=== PATIENT | female | born 1990 | race American Indian/Alaskan Native ===

== ENCOUNTER 2017-02-12 20:45 | Emergency (ER) | payer OTHER ==
[2017-02-13] MEDS ORDERED: TYLENOL #3 PO ONE (00:15)
[2017-02-13] MEDS ORDERED: TRIMOX PO ONE (00:15)
--- NOTE | 2017-02-13 00:37 | Emergency Department Report ---
HPI - General Chief Complaint: Dental/Oral Time Seen by Provider: 02/12/17 23:58 - HPI HPI: The patient is a 27-year-old frmale who presents to ED complaining of 10/10 pain in the left side of his mouth x 7 days . Patient states that the pain started 7 days ago and has increased in severity over the last 2-3 days. The pain is exacerbated by eating and opening of the mouth. Patient states that it radiates towards ear. Patient describes a as a throbbing, pressure-like sensation. Patient states otherwise well and has no other complaints. Patient has had no fevers and no chills. No chest pain, no shortness of breath. No abdominal pain. No shortness of breath or recent trauma to the face. ED Past Medical Hx - Past Medical History Previous Medical History?: Yes Hx Diabetes: Yes (Prediabetic?) - Social History Smoking Status: Never Smoker Substance Use Type: None - Medications Home Medications: Home Medications Medication Instructions Recorded Confirmed Last Taken Type Acetaminophen/Codeine [Tylenol 1 tab PO Q6H PRN #10 tab 02/13/17 Unknown Rx /Codeine # 3 tab] Amoxicillin [Amoxicillin TAB] 875 mg PO BID #20 tablet 02/13/17 Unknown Rx Ibuprofen [Motrin] 600 mg PO Q8H PRN #30 tablet 02/13/17 Unknown Rx ED Review of Systems ROS: Stated complaint: MIGRAINE/TOOTHACHE Other details as noted in HPI Constitutional: denies: chills, fever Eyes: denies: eye pain, eye discharge, vision change ENT: denies: ear pain, throat pain Respiratory: denies: cough, shortness of breath, wheezing Cardiovascular: denies: chest pain, palpitations Endocrine: no symptoms reported Gastrointestinal: denies: abdominal pain, nausea, diarrhea Genitourinary: denies: urgency, dysuria, discharge Musculoskeletal: denies: back pain, joint swelling, arthralgia Skin: denies: rash, lesions Neurological: denies: headache, weakness, paresthesias Psychiatric: denies: anxiety, depression Hematological/Lymphatic: denies: easy bleeding, easy bruising Physical Exam - Physical Exam Vital Signs: Vital Signs 02/12/17 22:07 Temperature 98.1 F Pulse Rate 53 L Respiratory 18 Rate Blood Pressure 114/75 O2 Sat by Pulse 100 Oximetry Physical Exam: GENERAL: Alert and oriented x3, no apparent distress, Normal Gait, atraumatic. HEAD: Head is normocephalic and a-traumatic. EYES: Extra ocular muscles are intact. Pupils are equal, round, and reactive to light and accommodation. MOUTH:Mouth is well hydrated and without lesions. Tonsils nonerythematous or swollen, Uvula midline, Tongue not elevated. Mucous membranes are moist. Posterior pharynx clear, no exudate or lesions. Patent airways. Tooth #20 tender to palpation and medicine, no gingival enlargement no bleeding. NECK: Supple. Non edematous, No carotid bruits. No lymphadenopathy or thyromegaly. No C-spine tenderness LUNGS: Symetrical with respiration, No wheezing, no rales or crackles, CTAB. HEART: S1, S2 present, regular rate and rhythm without murmur, no rubs, no gallops. Non tender to palpation SKIN: Warm and dry, No lesions, No ulceration or induration present. ED Course Vital Signs 02/12/17 22:07 Temperature 98.1 F Pulse Rate 53 L Respiratory 18 Rate Blood Pressure 114/75 O2 Sat by Pulse 100 Oximetry ED Medical Decision Making - Medical Decision Making 27-year-old female who presents with left-sided Facial pain secondary to odontogenic caries ED course: Patient received 1000 mg of amoxicillin, 2 tablets of Tylenol No. 3. Odontogenic infection versus ear infection. Based upon history and physical examination, pain is a result of an infection of tooth number 21 and that the pain. Pt feels on the left side of his face and towards the ear is referred pain from this infectious process. Pt has no evidence of acute impending airway compromise. At this point, patient will be discharged home on some antibiotics and pain trial, she will do well with an outpatient course of antibiotics. Follow up with the Dental Clinic as referred Vital signs are normal patient is in no acute distress. Pt had an effect uneventful ED stay Critical care attestation.: If time is entered above; I have spent that time in minutes in the direct care of this critically ill patient, excluding procedure time. ED Disposition Clinical Impression: Pain, dental Disposition: DC-01 TO HOME OR SELFCARE Is pt being admited?: No Does the pt Need Aspirin: No Condition: Stable Instructions: Dental Caries (ED), Acute Headache (ED), Toothache (ED) Additional Instructions: Follow-up with the primary care physician. Particular medication as prescribed. Follow-up with the dentist as referred. If worsening symptoms return to ED. Prescriptions: Acetaminophen/Codeine [Tylenol /Codeine # 3 tab] 1 tab PO Q6H PRN #10 tab PRN Reason: Pain Amoxicillin [Amoxicillin TAB] 875 mg PO BID #20 tablet Ibuprofen [Motrin] 600 mg PO Q8H PRN #30 tablet PRN Reason: Pain Referrals: PRIMARY CARE, [Primary Care Provider] - 3-5 Days [facility] [Outside] - 3-5 Days [facility] [Outside] - 3-5 Days Forms: Accompanied Note Time of Disposition: 00:37
[2017-02-13 01:17] VITALS: BP 148/95
== END 2017-02-13 01:17 | disposition home or self-care (01) ==
LOC: ED 20:45
DX: K08.89 Other specified disorders of teeth and supporting structures (principal); E11.9 Type 2 diabetes mellitus without complications
CPT/HCPCS: 99282

== ENCOUNTER 2017-04-29 12:16 | Emergency (ER) | payer OTHER ==
[2017-04-29] MEDS ORDERED: PROVENTIL IH ONE ×2 (12:30→12:34)
[2017-04-29] MEDS ORDERED: DUONEB *Not for PRN Use IH ONE ×2 (12:31→12:36)
--- NOTE | 2017-04-29 12:35 | Emergency Department Report ---
Minor Respiratory - HPI Chief Complaint: Upper Respiratory Infection Stated Complaint: REJI Time Seen by Provider: 04/29/17 12:30 Duration: Today Pain Location: Chest Severity: severe Minor Respiratory: Yes Able to Tolerate Fluids, No Rhinorrhea, No Sore Throat, No Ear Pain, No Cough, No Sick Contacts, No Hemoptysis, No Chest Pain, No Shortness of Breath, No Fever ED Review of Systems ROS: Stated complaint: REJI Other details as noted in HPI Comment: All other systems reviewed and negative Respiratory: wheezing ED Past Medical Hx - Past Medical History Hx Diabetes: Yes (Prediabetic?) - Surgical History Past Surgical History?: No - Social History Substance Use Type: None - Medications Home Medications: Home Medications Medication Instructions Recorded Confirmed Last Taken Type ALBUTEROL Inhaler [Proair] 2 puff IH QID PRN #1 inhalation 04/29/17 Unknown Rx Fluticasone [Flonase] 1 spray NS QDAY #1 bottle 04/29/17 Unknown Rx methylPREDNISolone [Medrol] 4 mg PO DAILY #1 tab.ds.pk 04/29/17 Unknown Rx Minor Respiratory Exam - Exam General: Vital signs noted. No distress. Alert and acting appropriately. HEENT: Yes Moist Mucous Membranes, No Pharyngeal Erythema, No Pharyngeal Exudates, No Rhinorrhea, No Conjuctival Injection, No Frontal Tenderness, No Maxillary Tenderness Ear: Neither TM Bulge, Neither TM Erythema, Neither EAC Pain, Neither EAC Discharge Neck: Yes Supple, No Adenopathy Lungs: Yes Wheezes, No Good Air Exchange, No Ronchi, No Stridor, No Cough, No Labored Respirations, No Retractions, No Use of Accessory Muscles, No Other Abnormal Lung Sounds Heart: Yes Regular, No Murmur Abdomen: Yes Normal Bowel Sounds, No Tenderness, No Peritoneal Signs Skin: No Rash, No Edema Neurologic: Alert and oriented, no deficits. Musculoskeletal: Unremarkable. ED Course Vital Signs 04/29/17 12:22 Temperature 98.1 F Pulse Rate 71 Respiratory 22 Rate Blood Pressure 118/74 O2 Sat by Pulse 96 Oximetry - Reevaluation(s) Reevaluation #1: 04/29/17 13:50 TO ER TODAY W SEVERE WHEEZING NEW TO AREA BELIEVES IT IS ENVIRONMENTAL NO HX ASTHMA NO FEVER NO PURULENT SPUTUM RT TX AND CLEAR TO AUSCULTATION SOLUMEDROL IM NO NEED FOR ANBX- NO S/S INFECTION IRREG MENSES SO P UPT DC HOME W DC POC ED Medical Decision Making - Medical Decision Making SEE NOTE - Differential Diagnosis WHEEZING Critical care attestation.: If time is entered above; I have spent that time in minutes in the direct care of this critically ill patient, excluding procedure time. ED Disposition Clinical Impression: Wheezing, Environmental allergies Disposition: DC-01 TO HOME OR SELFCARE Is pt being admited?: No Does the pt Need Aspirin: No Condition: Stable Additional Instructions: REST FLUIDS FOLLOW UP PCP- NAME PROVIDED HERE MEDS ORDERED Referrals: PRIMARY CAREMD [Primary Care Provider] - 3-5 Days APOLINAR BOWERS MD [Staff Physician] - 3-5 Days Time of Disposition: 13:47
[2017-04-29 14:22] VITALS: BP 126/82
== END 2017-04-29 14:22 | disposition home or self-care (01) ==
LOC: ED 12:16
DX: R06.2 Wheezing (principal); J30.2 Other seasonal allergic rhinitis
CPT/HCPCS: 81025; 94640; 96372; 99283; J2930

== ENCOUNTER 2017-05-11 10:41 | Emergency (ER) | payer OTHER ==
[2017-05-11] MEDS ORDERED: MAGNESIUM SULFATE 2GM/50ML 2 GM/50 ML BAG IV ONE (11:06)
[2017-05-11] MEDS ORDERED: ATROVENT IH ONE ×2 (11:11→11:15)
[2017-05-11] MEDS ORDERED: PROVENTIL IH ONE ×2 (11:11→11:15)
--- NOTE | 2017-05-11 11:24 | Emergency Department Report ---
HPI - General Chief Complaint: Adult Asthma Time Seen by Provider: 05/11/17 11:05 - HPI HPI: Room 4 The patient is a 27-year-old female presenting with a chief complaint of shortness of breath. Patient states she awakened this morning is 09:00 with shortness of breath. Patient admits to occasional cough is sometimes productive of "light-colored" sputum. Patient denies fever. Patient denies having a history of asthma Location: Lungs Duration: Constant since 09:00 Quality: Shortness of breath Severity: Moderate Modifying factors: [see above] Context: [see above] Mode of transportation: [not driving] ED Past Medical Hx - Past Medical History Hx Diabetes: Yes (Prediabetic?) - Surgical History Past Surgical History?: No - Family History Family history: no significant - Social History Smoking Status: Current Every Day Smoker Substance Use Type: None (denies illicit drug use) - Medications Home Medications: Home Medications Medication Instructions Recorded Confirmed Last Taken Type ALBUTEROL Inhaler [Proair] 2 puff IH QID PRN #1 inhalation 04/29/17 Unknown Rx Fluticasone [Flonase] 1 spray NS QDAY #1 bottle 04/29/17 Unknown Rx methylPREDNISolone [Medrol] 4 mg PO DAILY #1 tab.ds.pk 04/29/17 Unknown Rx ALBUTEROL Inhaler [Proair] 2 puff IH QID PRN #1 inhalation 05/11/17 Unknown Rx Prednisone [predniSONE 10 mg 10 mg PO .TAPER #1 tab.ds.pk 05/11/17 Unknown Rx (6-Day Pack, 21 Tabs)] ED Review of Systems ROS: Stated complaint: DIFFICULTY BREATHING Other details as noted in HPI Comment: All other systems reviewed and negative Constitutional: denies: chills, fever Eyes: denies: eye pain, eye discharge, vision change ENT: denies: ear pain, throat pain Respiratory: shortness of breath, wheezing Cardiovascular: denies: palpitations Endocrine: no symptoms reported Gastrointestinal: denies: abdominal pain, nausea, diarrhea Genitourinary: denies: urgency, dysuria, discharge Musculoskeletal: denies: back pain, joint swelling, arthralgia Skin: denies: rash, lesions Neurological: denies: headache, weakness, paresthesias Psychiatric: denies: anxiety, depression Hematological/Lymphatic: denies: easy bleeding, easy bruising Physical Exam - Physical Exam Vital Signs: Vital Signs 05/11/17 10:45 Temperature 98.0 F Pulse Rate 106 H Respiratory 28 H Rate Blood Pressure 129/79 O2 Sat by Pulse 92 Oximetry Physical Exam: GENERAL: The patient is well-developed well-nourished female sitting on stretcher with increased work of breathing. [] HEENT: Normocephalic. Atraumatic. Extraocular motions are intact. Patient has moist mucous membranes. NECK: Supple. Trachea midline CHEST/LUNGS: Tight wheezing diffusely. Accessory muscle use HEART/CARDIOVASCULAR: Regular. There is tachycardia. There is no gallop rub or murmur. ABDOMEN: Abdomen is soft, nontender. Patient has normal bowel sounds. There is no abdominal distention. SKIN: There is no rash. There is no edema. There is no diaphoresis. NEURO: The patient is awake, alert, and oriented. The patient is cooperative. MUSCULOSKELETAL: There is no evidence of acute injury. ED Course Vital Signs 05/11/17 10:45 Temperature 98.0 F Pulse Rate 106 H Respiratory 28 H Rate Blood Pressure 129/79 O2 Sat by Pulse 92 Oximetry - Reevaluation(s) Reevaluation #1: 05/11/17 12:28 Patient states she feels improved and currently has no shortness of breath 05/11/17 12:43 SPO2 97% on room air ED Medical Decision Making - Lab Data Result diagrams: 05/11/17 11:31 05/11/17 11:31 Laboratory Tests 05/11/17 05/11/17 05/11/17 11:31 11:31 11:31 WBC 4.8 RBC 3.95 Hgb 13.6 Hct 39.9 MCV 101 H MCH 35 H MCHC 34 RDW 12.6 L Plt Count 193 Lymph % (Auto) 36.5 H [place] % (Auto) 7.5 H Eos % (Auto) 4.6 H Baso % (Auto) 0.9 Lymph # 1.8 [place] # 0.4 Eos # 0.2 Baso # 0.0 Seg Neutrophils % 50.5 Seg Neutrophils # 2.4 PT INR APTT Sodium 140 Potassium 4.1 Chloride 103.9 Carbon Dioxide 22 Anion Gap 18 BUN 9 Creatinine 0.6 L Estimated GFR > 60 BUN/Creatinine Ratio 15 Glucose 93 Calcium 8.8 Total Creatine Kinase 464 H CK-MB (CK-2) 6.9 H CK-MB (CK-2) Rel Index 1.4 Troponin T < 0.010 NT-Pro-B Natriuret Pep 68.82 HCG, Qual Negative 05/11/17 11:31 WBC RBC Hgb Hct MCV MCH MCHC RDW Plt Count Lymph % (Auto) [place] % (Auto) Eos % (Auto) Baso % (Auto) Lymph # [place] # Eos # Baso # Seg Neutrophils % Seg Neutrophils # PT 14.1 INR 1.04 APTT 36.5 Sodium Potassium Chloride Carbon Dioxide Anion Gap BUN Creatinine Estimated GFR BUN/Creatinine Ratio Glucose Calcium Total Creatine Kinase CK-MB (CK-2) CK-MB (CK-2) Rel Index Troponin T NT-Pro-B Natriuret Pep HCG, Qual - EKG Data -: EKG Interpreted by Me EKG shows normal: sinus rhythm Rate: normal - EKG Data When compared to previous EKG there are: previous EKG unavailable Interpretation: nonspecific ST-T wave darren (T-wave inversions in lead V3) - Radiology Data Radiology results: image reviewed (chest x-ray) interpreted by me: Chest x-ray-no focal infiltrates, no pneumothorax. Left nipple piercing - Differential Diagnosis acute asthma exacerbation, CHF, pneumothorax Critical care attestation.: If time is entered above; I have spent that time in minutes in the direct care of this critically ill patient, excluding procedure time. ED Disposition Clinical Impression: Shortness of breath, Wheezing Disposition: DC- TO HOME OR SELFCARE Is pt being admited?: No Does the pt Need Aspirin: No Condition: Stable Instructions: Reactive Airways Disease (ED) Additional Instructions: Return to the emergency department immediately should you develop worsening symptoms, fever, inability to tolerate food or liquid or any other concerns. Prescriptions: ALBUTEROL Inhaler [Proair] 2 puff IH QID PRN #1 inhalation PRN Reason: Shortness Of Breath Prednisone [predniSONE 10 mg (6-Day Pack, 21 Tabs)] 10 mg PO .TAPER #1 tab.ds.pk Referrals: VIRI MCKEON MD [Staff Physician] - 3-5 Days CAMDEN SUE MD [Staff Physician] - 3-5 Days (Dr. Villanueva is a mold inspector. Please follow up with him for further evaluation) Time of Disposition: 12:43
[2017-05-11 11:43] LABS: Basophils % (Auto) 0.9 % (0.0-1.8); Eosinophils % (Auto) 4.6 % (0.0-4.3); Hematocrit 39.9 % (30.3-42.9); Hemoglobin 13.6 gm/dl (10.1-14.3); Mean Corpuscular HGB Conc 34 % (30-34); Mean Corpuscular Hemoglobin 35 pg (28-32); Mean Corpuscular Volume 101 fl (79-97); Platelet Count 193 K/mm3 (140-440); Red Blood Count 3.95 M/mm3 (3.65-5.03); Red Cell Distribution Width 12.6 % (13.2-15.2); White Blood Count 4.8 K/mm3 (4.5-11.0)
[2017-05-11 11:51] LABS: INR 1.04 (0.87-1.13)
[2017-05-11 11:52] LABS: Partial Thromboplastin Time 36.5 Sec. (24.2-36.6)
[2017-05-11 12:18] LABS: Creatine Kinase MB 6.9 ng/mL (0.0-4.0)
[2017-05-11 12:19] LABS: Anion Gap 18 mmol/L; BUN/Creatinine Ratio 15; Blood Urea Nitrogen 9 mg/dL (7-17); Calcium 8.8 mg/dL (8.4-10.2); Carbon Dioxide 22 mmol/L (22-30); Chloride 103.9 mmol/L (98-107); Creatine Kinase 464 units/L (30-135); Glucose 93 mg/dL (65-100); Potassium 4.1 mmol/L (3.6-5.0); Sodium 140 mmol/L (137-145)
[2017-05-11 13:02] VITALS: BP 101/64
--- NOTE | 2017-05-11 13:44 | XRay Report ---
Single view chest: History: Shortness of breath. Findings: Normal cardiomediastinal silhouette. Trachea is midline. No consolidation, pneumothorax or pleural effusion. Impression: No acute cardiopulmonary findings.
== END 2017-05-11 13:23 | disposition home or self-care (01) ==
LOC: ED 10:41
DX: R06.02 Shortness of breath (principal); R06.2 Wheezing; F17.200 Nicotine dependence, unspecified, uncomplicated
CPT/HCPCS: 36415; 71010; 80048; 82550; 82553; 83880; 84484; 84703; 85025; 85610; 85730; 93005; 93010; 94640; 94644; 96365; 96375; 99284; J2930; J3475

== ENCOUNTER 2017-05-21 18:37 | Emergency (ER) | payer OTHER ==
[2017-05-21 18:46] VITALS: BP 127/67
[2017-05-21] MEDS ORDERED: DUONEB *Not for PRN Use IH ONE (18:48)
[2017-05-21] MEDS ORDERED: DELTASONE PO ONE (18:48)
== END 2017-05-22 06:41 | disposition left against medical advice (07) ==
LOC: ED 18:37
DX: R06.02 Shortness of breath (principal); Z53.21 Procedure and treatment not carried out due to patient leaving prior to being seen by health care provider
CPT/HCPCS: 94640; J7512

== ENCOUNTER 2017-05-29 14:41 | Outpatient (CLI) | payer OTHER ==
[2017-05-29 15:01] LABS: Basophils % (Auto) 0.7 % (0.0-1.8); Eosinophils % (Auto) 5.3 % (0.0-4.3); Hematocrit 39.2 % (30.3-42.9); Mean Corpuscular HGB Conc 33 % (30-34); Mean Corpuscular Hemoglobin 33 pg (28-32); Mean Corpuscular Volume 100 fl (79-97); Platelet Count 226 K/mm3 (140-440); Red Cell Distribution Width 12.9 % (13.2-15.2); White Blood Count 6.1 K/mm3 (4.5-11.0)
[2017-05-29 15:25] LABS: Alanine Aminotransferase 19 units/L (7-56); Albumin 4.3 g/dL (3.9-5); Albumin/Globulin Ratio 1.5 %; Alkaline Phosphatase 63 units/L (35-129); Anion Gap 17 mmol/L; BUN/Creatinine Ratio 12; Blood Urea Nitrogen 7 mg/dL (7-17); Carbon Dioxide 27 mmol/L (22-30); Chloride 102.1 mmol/L (98-107); Cholesterol 181 mg/dL (50-199); Glucose 90 mg/dL (65-100); HDL Cholesterol 64 mg/dL (40-59); LDL Cholesterol,Direct 93 mg/dL (50-130); Potassium 4.1 mmol/L (3.6-5.0); Sodium 142 mmol/L (137-145); Total Protein 7.2 g/dL (6.3-8.2); Triglycerides 120 mg/dL (2-149)
--- NOTE | 2017-05-29 15:54 | XRay Report ---
ROUTINE CHEST, TWO VIEWS: History: Shortness of breath. PA and lateral views demonstrate the heart and mediastinal contour to be of normal size and shape. The lungs are clear and fully expanded and the soft tissues and bony structures are normal. IMPRESSION: Normal study.
--- NOTE | 2017-05-29 16:34 | Cat Scan Report ---
FINAL REPORT PROCEDURE: CT ANGIO CHEST TECHNIQUE: Computerized tomographic angiography of the chest was performed after the IV injection of iodinated nonionic contrast including image processing. The image data was postprocessed using 2-dimensional multiplanar reformatted (MPR) and 3-dimensional (MIP and/or volume rendered) techniques. HISTORY: SHORTNESS OF BREATH COMPARISON: No prior studies are available for comparison. FINDINGS: Heart and pericardium: Normal. Thoracic aorta: Normal. Pulmonary vasculature: Normal. Lymph nodes: No enlarged thoracic lymph nodes. Lungs: Normal. Pleural space: No effusion, thickening, or pneumothorax. Musculoskeletal structures: No significant abnormality. Upper abdominal structures: No significant abnormality. IMPRESSION: Normal Examination
--- NOTE | 2017-05-30 13:28 | Vascular Lab Report ---
LOWER EXTREMITY VENOUS DUPLEX: REASON FOR EXAM: Pain of the lower extremities. COMMENTS ON THE RIGHT: All veins visualized are freely compressible without evidence of internal echogenicity. Flow is spontaneous and phasic throughout. COMMENTS ON THE LEFT: All veins visualized are freely compressible without evidence of internal echogenicity. Flow is spontaneous and phasic throughout. IMPRESSION: No evidence of acute or chronic deep venous thrombosis in either lower extremity.
== END 2017-05-29 14:42 | disposition home or self-care (01) ==
LOC: CT 14:41
PROVIDERS: ATTEND Internal Medicine
DX: R06.02 Shortness of breath (principal); M79.661 Pain in right lower leg; M79.662 Pain in left lower leg; Z79.899 Other long term (current) drug therapy
CPT/HCPCS: 36415; 71020; 71275; 80053; 80061; 84436; 84443; 85025; 85379; 93970; Q9967

== ENCOUNTER 2017-07-05 02:54 | Emergency (ER) | payer OTHER ==
[2017-07-05 03:07] VITALS: BP 109/68
== END 2017-07-05 06:00 | disposition left against medical advice (07) ==
LOC: ED 02:54
DX: R06.02 Shortness of breath (principal); Z53.21 Procedure and treatment not carried out due to patient leaving prior to being seen by health care provider
CPT/HCPCS: 87400

== ENCOUNTER 2018-12-10 01:02 | Emergency (ER) | payer SELFPAY ==
[2018-12-10] MEDS ORDERED: DUONEB *Not for PRN Use IH ONE (01:08)
[2018-12-10] MEDS ORDERED: ATROVENT IH ONE (01:23)
[2018-12-10] MEDS ORDERED: PROVENTIL IH ONE (01:23)
[2018-12-10] MEDS ORDERED: MAGNESIUM SULFATE 2GM/50ML 2 GM/50 ML BAG IV ONE (01:23)
[2018-12-10] MEDS ORDERED: SOLU-Medrol IV ONE (01:23)
[2018-12-10 01:59] LABS: Basophils % (Auto) 0.4 % (0.0-1.8); Eosinophils # (Auto) 0.3 K/mm3 (0.0-0.4); Eosinophils % (Auto) 2.9 % (0.0-4.3); Hematocrit 42.3 % (30.3-42.9); Hemoglobin 14.6 gm/dl (10.1-14.3); Lymphocytes # (Auto) 3.5 K/mm3 (1.2-5.4); Lymphocytes % (Auto) 32.2 % (13.4-35.0); Mean Corpuscular HGB Conc 35 % (30-34); Mean Corpuscular Volume 100 fl (79-97); Monocytes # (Auto) 0.6 K/mm3 (0.0-0.8); Monocytes % (Auto) 5.3 % (0.0-7.3); Platelet Count 218 K/mm3 (140-440); Red Blood Count 4.21 M/mm3 (3.65-5.03); Red Cell Distribution Width 13.2 % (13.2-15.2)
--- NOTE | 2018-12-10 02:00 | XRay Report ---
PROCEDURE: XR CHEST 1V AP TECHNIQUE: Chest radiograph single view. HISTORY: cough, sob COMPARISONS: 05/29/2017 . FINDINGS: Heart: Normal. Mediastinum/Vessels: Normal. Lungs/Pleural space: Normal. Bony thorax: No acute osseous abnormality. Life support devices: None. IMPRESSION: No acute cardiopulmonary abnormality. This document is electronically signed by Marcelo Bingham MD., December 10 2018 01:58:30 AM ET
[2018-12-10 02:19] LABS: BUN/Creatinine Ratio 11; Blood Urea Nitrogen 9 mg/dL (7-17); Calcium 9.7 mg/dL (8.4-10.2); Hemolysis Index 7
--- NOTE | 2018-12-10 03:44 | Emergency Department Report ---
ED Shortness of Breath HPI - General Chief Complaint: Dyspnea/Respdistress Stated Complaint: REJI Time Seen by Provider: 12/10/18 01:22 Source: patient Mode of arrival: Ambulatory Limitations: No Limitations - History of Present Illness Initial Comments: 28-year-old female presents to ED with shortness of breath. Patient reports onset of cough 1 week ago, states the cough triggers the wheezing. Patient states she attempted to go to bed tonight and began having a coughing spell. States was unable to get her breathing under control so she came to the ER. Denies fever. Patient states she has never been told that she has asthma, however has had wheezing several times in the past and has been prescribed an albuterol inhaler. Initial O2 sats at triage 93% RA Complaint: shortness of breath, cough -: week(s) (1) Severity: moderate Consistency: constant Improves With: nothing Worsens With: coughing Known History Of: other (possible asthma) Associated Symptoms: cough Treatments Prior to Arrival: none - Related Data Home Oxygen Therapy: No Previous Rx's Medication Instructions Recorded Last Taken Type ALBUTEROL Inhaler (OR & NICU) 2 puff IH QID PRN #1 inhalation 04/29/17 Unknown Rx [Proair] Fluticasone [Flonase] 1 spray NS QDAY #1 bottle 04/29/17 Unknown Rx methylPREDNISolone [Medrol] 4 mg PO DAILY #1 tab.ds.pk 04/29/17 Unknown Rx ALBUTEROL Inhaler (OR & NICU) 2 puff IH QID PRN #1 inhalation 05/11/17 Unknown Rx [Proair] Prednisone [predniSONE 10 mg 10 mg PO .TAPER #1 tab.ds.pk 05/11/17 Unknown Rx (6-Day Pack, 21 Tabs)] Albuterol Sulfate [Proventil Hfa] 2 puff IH Q4HR PRN #1 hfa.aer.ad 12/10/18 Unknown Rx Benzonatate [Tessalon Perles] 100 mg PO Q8HR PRN #20 capsule 12/10/18 Unknown Rx predniSONE [Deltasone] 50 mg PO QDAY #5 tab 12/10/18 Unknown Rx Allergies Allergy/AdvReac Type Severity Reaction Status Date / Time No Known Allergies Allergy Verified 04/29/17 12:22 ED Review of Systems ROS: Stated complaint: REJI Other details as noted in HPI Comment: All other systems reviewed and negative Constitutional: denies: chills, fever Respiratory: cough, shortness of breath, wheezing Gastrointestinal: vomiting ED Past Medical Hx - Past Medical History Previous Medical History?: No Hx Diabetes: Yes (Prediabetic?) - Surgical History Past Surgical History?: Yes Hx Appendectomy: Yes (?2006 or 2007) - Social History Smoking Status: Current Every Day Smoker Substance Use Type: None - Medications Home Medications: Home Medications Medication Instructions Recorded Confirmed Last Taken Type ALBUTEROL Inhaler (OR & NICU) 2 puff IH QID PRN #1 inhalation 04/29/17 Unknown Rx [Proair] Fluticasone [Flonase] 1 spray NS QDAY #1 bottle 04/29/17 Unknown Rx methylPREDNISolone [Medrol] 4 mg PO DAILY #1 tab.ds.pk 04/29/17 Unknown Rx ALBUTEROL Inhaler (OR & NICU) 2 puff IH QID PRN #1 inhalation 05/11/17 Unknown Rx [Proair] Prednisone [predniSONE 10 mg 10 mg PO .TAPER #1 tab.ds.pk 05/11/17 Unknown Rx (6-Day Pack, 21 Tabs)] Albuterol Sulfate [Proventil Hfa] 2 puff IH Q4HR PRN #1 hfa.aer.ad 12/10/18 Unknown Rx Benzonatate [Tessalon Perles] 100 mg PO Q8HR PRN #20 capsule 12/10/18 Unknown Rx predniSONE [Deltasone] 50 mg PO QDAY #5 tab 12/10/18 Unknown Rx ED Physical Exam - General Limitations: No Limitations General appearance: alert, anxious - Head Head exam: Present: atraumatic, normocephalic - Eye Eye exam: Present: normal appearance - ENT ENT exam: Present: mucous membranes moist - Neck Neck exam: Present: normal inspection - Respiratory Respiratory exam: Present: respiratory distress, wheezes, decreased breath sounds, other (tachypneic) - Cardiovascular Cardiovascular Exam: Present: normal rhythm, tachycardia - GI/Abdominal GI/Abdominal exam: Present: soft. Absent: distended, tenderness - Extremities Exam Extremities exam: Absent: pedal edema, calf tenderness - Neurological Exam Neurological exam: Present: alert, oriented X3 - Psychiatric Psychiatric exam: Present: anxious - Skin Skin exam: Present: warm, dry, intact, normal color. Absent: rash ED Course Vital Signs 12/10/18 12/10/18 12/10/18 01:05 01:18 01:19 Temperature 97.9 F Pulse Rate 120 H Pulse Rate [ Bilateral Throughout] Respiratory 30 H 18 28 H Rate Respiratory Rate [Bilateral Throughout] Blood Pressure 123/95 O2 Sat by Pulse 93 Oximetry 12/10/18 12/10/18 12/10/18 01:21 01:30 01:33 Temperature Pulse Rate 89 Pulse Rate [ 75 102 H Bilateral Throughout] Respiratory 18 Rate Respiratory 20 22 Rate [Bilateral Throughout] Blood Pressure O2 Sat by Pulse 100 Oximetry 12/10/18 12/10/18 12/10/18 01:46 02:00 02:16 Temperature Pulse Rate 82 88 82 Pulse Rate [ Bilateral Throughout] Respiratory 14 15 22 Rate Respiratory Rate [Bilateral Throughout] Blood Pressure O2 Sat by Pulse 100 99 100 Oximetry 12/10/18 12/10/18 12/10/18 02:18 02:20 02:22 Temperature Pulse Rate 94 H 79 89 Pulse Rate [ Bilateral Throughout] Respiratory 13 13 18 Rate Respiratory Rate [Bilateral Throughout] Blood Pressure 105/65 105/65 105/65 O2 Sat by Pulse 100 100 100 Oximetry 12/10/18 12/10/18 12/10/18 02:24 02:25 02:26 Temperature Pulse Rate 84 93 H Pulse Rate [ 93 H Bilateral Throughout] Respiratory 18 18 Rate Respiratory 15 Rate [Bilateral Throughout] Blood Pressure 105/65 105/65 O2 Sat by Pulse 100 99 Oximetry 12/10/18 03:00 Temperature Pulse Rate Pulse Rate [ 80 Bilateral Throughout] Respiratory Rate Respiratory 20 Rate [Bilateral Throughout] Blood Pressure O2 Sat by Pulse Oximetry ED Medical Decision Making - Lab Data Result diagrams: 12/10/18 01:44 12/10/18 01:44 - Radiology Data Radiology results: report reviewed, image reviewed - Medical Decision Making - likely history of asthma - URI sx's for 1 week - coughing spell triggered wheezing - initial O2 sats 93% RA - albuterol nebs, mag sulfate, solumedrol given - symptoms improved - ambulated around ED, no wheezing, O2 sats remained normal - will d/c at this time as pt doing much better - return precautions given - outpt f/u advised - Differential Diagnosis asthma, pneumonia, bronchitis Critical care attestation.: If time is entered above; I have spent that time in minutes in the direct care of this critically ill patient, excluding procedure time. ED Disposition Clinical Impression: Asthma with acute exacerbation Disposition: DC-01 TO HOME OR SELFCARE Is pt being admited?: No Condition: Stable Instructions: Asthma (ED) Referrals: LETITIA JACOBO MD [Primary Care Provider] - 3-5 Days Time of Disposition: 03:49
[2018-12-10 04:02] VITALS: BP 104/54
== END 2018-12-10 04:22 | disposition home or self-care (01) ==
LOC: ED 01:02
DX: J45.901 Unspecified asthma with (acute) exacerbation (principal); F17.200 Nicotine dependence, unspecified, uncomplicated; Z90.89 Acquired absence of other organs
CPT/HCPCS: 36415; 71045; 80048; 85025; 94640; 94644; 96365; 96375; 99284; J2930; J3475

== ENCOUNTER 2020-04-06 05:07 | Emergency (ER) | payer SELFPAY ==
[2020-04-06] MEDS ORDERED: MAGNESIUM SULFATE 2 GM/50 ML BAG IV ONE ×2 (05:27→05:28)
[2020-04-06] MEDS ORDERED: methylPREDNISolone Sod Succinate 125 MG/2 ML INJ ONE (05:27)
[2020-04-06] MEDS ORDERED: IPRATROPIUM 0.02% NEBU 2.5 ML IH ONE (05:28)
[2020-04-06] MEDS ORDERED: ALBUTEROL 2.5 MG/3 ML NEBU IH ONE (05:28)
[2020-04-06] MEDS ORDERED: methylPREDNISolone Sod Succinate 125 MG/2 ML INJ IV ONE (05:28)
--- NOTE | 2020-04-06 05:31 | Event Note ---
Date: 04/06/20 Patient is 30 years old female with history of asthma. Patient presented to the emergency room with significant shortness of breath and wheezing with initial oxygen saturation of 89% on room air. Patient denied any chest pain, fever or chills. On exam patient is tachypneic with accessory muscle use. Decreased breath sound on both sides with diffuse wheezing. Albuterol, Atrovent, Solu- Medrol and magnesium sulfate ordered.
[2020-04-06 05:58] LABS: Basophils % (Auto) 0.2 % (0.0-1.8); Eosinophils # (Auto) 0.1 K/mm3 (0.0-0.4); Eosinophils % (Auto) 1.6 % (0.0-4.3); Hematocrit 40.1 % (30.3-42.9); Lymphocytes # (Auto) 1.8 K/mm3 (1.2-5.4); Lymphocytes % (Auto) 22.1 % (13.4-35.0); Mean Corpuscular HGB Conc 35 % (30-34); Mean Corpuscular Volume 100 fl (79-97); Monocytes # (Auto) 0.9 K/mm3 (0.0-0.8); Monocytes % (Auto) 10.8 % (0.0-7.3); Platelet Count 199 K/mm3 (140-440); Red Blood Count 4.02 M/mm3 (3.65-5.03); Red Cell Distribution Width 12.7 % (13.2-15.2)
--- NOTE | 2020-04-06 06:05 | XRay Report ---
CHEST 1 VIEW INDICATION: Dyspnea. COMPARISON: 12/10/2018. FINDINGS: Support devices: None. Heart: Normal. Lungs/Pleura: No acute pulmonary or pleural findings. IMPRESSION: 1. No acute findings. Signer Name: Mehul Fishman MD Signed: 04/06/2020 6:00 AM Workstation Name: [email or web address][id number]
[2020-04-06 06:18] LABS: Blood Urea Nitrogen 6 mg/dL (7-17); Calcium 9.9 mg/dL (8.4-10.2); Hemolysis Index 15
[2020-04-06 06:19] LABS: BUN/Creatinine Ratio 9
--- NOTE | 2020-04-06 06:23 | Emergency Department Report ---
ED General Adult HPI - General Chief complaint: Dyspnea/Respdistress Stated complaint: ASTHMA Time Seen by Provider: 04/06/20 06:07 Source: patient Mode of arrival: Ambulatory Limitations: No Limitations - History of Present Illness Initial comments: Patient presents to emergency department chief complaint of shortness of breath. Patient does have a history of asthma and around 6 PM yesterday she began to have an attack. Patient was initially screened by my colleague and upon her arrival she was using accessory muscles to breathe and had diminished breath sounds throughout with significant wheezing. Patient denies any cedric chest pain just states her chest is sore which is common with her asthma attacks. Patient has a continuous breathing treatment in process upon my exam but she states she feels better. -: Sudden Severity scale (0 -10): 1 Quality: aching Consistency: constant Improves with: none Worsens with: none Associated Symptoms: denies other symptoms Treatments Prior to Arrival: none - Related Data Previous Rx's Medication Instructions Recorded Last Taken Type Albuterol Mdi (or & Nicu Only) 2 puff IH QID PRN #1 inhalation 04/29/17 Unknown Rx [Proair] Fluticasone [Flonase] 1 spray NS QDAY #1 bottle 04/29/17 Unknown Rx methylPREDNISolone [Medrol] 4 mg PO DAILY #1 tab.ds.pk 04/29/17 Unknown Rx Albuterol Mdi (or & Nicu Only) 2 puff IH QID PRN #1 inhalation 05/11/17 Unknown Rx [Proair] Prednisone [predniSONE 10 mg 10 mg PO .TAPER #1 tab.ds.pk 05/11/17 Unknown Rx (6-Day Pack, 21 Tabs)] Albuterol Sulfate [Proventil Hfa] 2 puff IH Q4HR PRN #1 hfa.aer.ad 12/10/18 Unknown Rx Benzonatate [Tessalon Perles] 100 mg PO Q8HR PRN #20 capsule 12/10/18 Unknown Rx predniSONE [Deltasone] 50 mg PO QDAY #5 tab 12/10/18 Unknown Rx Albuterol Mdi (or & Nicu Only) 2 puff IH Q4HR PRN #1 inhalation 04/06/20 Unknown Rx [ProAir HFA Inhaler] predniSONE [Deltasone] 20 mg PO DAILY #15 tablet 04/06/20 Unknown Rx Allergies Allergy/AdvReac Type Severity Reaction Status Date / Time No Known Allergies Allergy Verified 04/29/17 12:22 ED Review of Systems ROS: Stated complaint: ASTHMA Other details as noted in HPI Constitutional: denies: chills, fever Eyes: denies: eye pain, eye discharge, vision change ENT: denies: ear pain, throat pain Respiratory: shortness of breath. denies: cough, wheezing Cardiovascular: denies: chest pain, palpitations Endocrine: no symptoms reported Gastrointestinal: denies: abdominal pain, nausea, diarrhea Genitourinary: denies: urgency, dysuria, discharge Musculoskeletal: denies: back pain, joint swelling, arthralgia Skin: denies: rash, lesions Neurological: denies: headache, weakness, paresthesias Psychiatric: denies: anxiety, depression Hematological/Lymphatic: denies: easy bleeding, easy bruising ED Past Medical Hx - Past Medical History Previous Medical History?: Yes Hx Diabetes: Yes (Prediabetic?) Hx Asthma: Yes - Surgical History Past Surgical History?: Yes Hx Appendectomy: Yes - Social History Smoking Status: Current Every Day Smoker Substance Use Type: None - Medications Home Medications: Home Medications Medication Instructions Recorded Confirmed Last Taken Type Albuterol Mdi (or & Nicu Only) 2 puff IH QID PRN #1 inhalation 04/29/17 Unknown Rx [Proair] Fluticasone [Flonase] 1 spray NS QDAY #1 bottle 04/29/17 Unknown Rx methylPREDNISolone [Medrol] 4 mg PO DAILY #1 tab.ds.pk 04/29/17 Unknown Rx Albuterol Mdi (or & Nicu Only) 2 puff IH QID PRN #1 inhalation 05/11/17 Unknown Rx [Proair] Prednisone [predniSONE 10 mg 10 mg PO .TAPER #1 tab.ds.pk 05/11/17 Unknown Rx (6-Day Pack, 21 Tabs)] Albuterol Sulfate [Proventil Hfa] 2 puff IH Q4HR PRN #1 hfa.aer.ad 12/10/18 Unk nown Rx Benzonatate [Tessalon Perles] 100 mg PO Q8HR PRN #20 capsule 12/10/18 Unknown Rx predniSONE [Deltasone] 50 mg PO QDAY #5 tab 12/10/18 Unknown Rx Albuterol Mdi (or & Nicu Only) 2 puff IH Q4HR PRN #1 inhalation 04/06/20 Unknown Rx [ProAir HFA Inhaler] predniSONE [Deltasone] 20 mg PO DAILY #15 tablet 04/06/20 Unknown Rx ED Physical Exam - General Limitations: No Limitations General appearance: alert, in no apparent distress - Head Head exam: Present: atraumatic, normocephalic - Eye Eye exam: Present: normal appearance - ENT ENT exam: Present: mucous membranes moist - Neck Neck exam: Present: normal inspection - Respiratory Respiratory exam: Present: wheezes. Absent: respiratory distress - Cardiovascular Cardiovascular Exam: Present: regular rate, normal rhythm. Absent: systolic murmur, diastolic murmur, rubs, gallop - GI/Abdominal GI/Abdominal exam: Present: soft, normal bowel sounds - Extremities Exam Extremities exam: Present: normal inspection - Back Exam Back exam: Present: normal inspection - Neurological Exam Neurological exam: Present: alert, oriented X3 - Psychiatric Psychiatric exam: Present: normal affect, normal mood - Skin Skin exam: Present: warm, dry, intact, normal color. Absent: rash ED Course Vital Signs 04/06/20 04/06/20 04/06/20 05:16 05:30 05:33 Temperature 98.1 F Pulse Rate 121 H 89 76 Pulse Rate [ Bilateral Throughout] Respiratory 22 26 H 20 Rate Respiratory Rate [Bilateral Throughout] Blood Pressure 127/70 Blood Pressure 114/55 [Left] O2 Sat by Pulse 95 89 99 Oximetry 04/06/20 04/06/20 04/06/20 05:45 05:56 06:00 Temperature Pulse Rate 84 72 Pulse Rate [ 77 Bilateral Throughout] Respiratory 18 20 Rate Respiratory 18 Rate [Bilateral Throughout] Blood Pressure 114/55 117/71 Blood Pressure [Left] O2 Sat by Pulse 98 100 Oximetry 04/06/20 04/06/20 04/06/20 06:15 06:30 06:45 Temperature Pulse Rate 65 73 91 H Pulse Rate [ Bilateral Throughout] Respiratory 28 H Rate Respiratory Rate [Bilateral Throughout] Blood Pressure 109/74 109/74 Blood Pressure [Left] O2 Sat by Pulse 100 99 97 Oximetry ED Medical Decision Making - Lab Data Result diagrams: 04/06/20 05:38 04/06/20 05:38 Lab Results 04/06/20 04/06/20 Range/Units 05:38 05:38 WBC 8.0 (4.5-11.0) K/mm3 RBC 4.02 (3.65-5.03) M/mm3 Hgb 14.0 (10.1-14.3) gm/dl Hct 40.1 (30.3-42.9) % MCV 100 H (79-97) fl MCH 35 H (28-32) pg MCHC 35 H (30-34) % RDW 12.7 L (13.2-15.2) % Plt Count 199 (140-440) K/mm3 Lymph % (Auto) 22.1 (13.4-35.0) % Overton % (Auto) 10.8 H (0.0-7.3) % Eos % (Auto) 1.6 (0.0-4.3) % Baso % (Auto) 0.2 (0.0-1.8) % Lymph # (Auto) 1.8 (1.2-5.4) K/mm3 Overton # (Auto) 0.9 H (0.0-0.8) K/mm3 Eos # (Auto) 0.1 (0.0-0.4) K/mm3 Baso # (Auto) 0.0 (0.0-0.1) K/mm3 Seg Neutrophils % 65.3 (40.0-70.0) % Seg Neutrophils # 5.2 (1.8-7.7) K/mm3 Sodium 140 (137-145) mmol/L Potassium 4.0 (3.6-5.0) mmol/L Chloride 98.8 (98-107) mmol/L Carbon Dioxide 24 (22-30) mmol/L Anion Gap 21 mmol/L BUN 6 L (7-17) mg/dL Creatinine 0.7 (0.6-1.2) mg/dL Estimated GFR > 60 ml/min BUN/Creatinine Ratio 9 % Glucose 115 H (65-100) mg/dL Calcium 9.9 (8.4-10.2) mg/dL - Radiology Data Radiology results: report reviewed - Medical Decision Making Patient received hour-long continuous breathing treatment with albuterol and Atrovent Patient received IV magnesium Patient received IV steroids Patient improved after treatment Critical Care Time: Yes Critical care time in (mins) excluding proc time.: 35 Critical care attestation.: If time is entered above; I have spent that time in minutes in the direct care of this critically ill patient, excluding procedure time. ED Disposition Clinical Impression: Asthma attack Disposition: TO HOME OR SELFCARE Is pt being admited?: No Does the pt Need Aspirin: No Condition: Stable Instructions: Asthma (ED) Additional Instructions: return if worse Referrals: PRIMARY CARE, [Primary Care Provider] - 3-5 Days ZAK YOUSSEF MD [Staff Physician] - 3-5 Days [facility] [Provider Group] - 3-5 Days [facility] [Provider Group] - 3-5 Days Time of Disposition: 08:34
[2020-04-06 08:52] VITALS: BP 108/58
== END 2020-04-06 08:53 | disposition home or self-care (01) ==
LOC: ED 05:07
DX: J45.909 Unspecified asthma, uncomplicated (principal); I10 Essential (primary) hypertension; F17.200 Nicotine dependence, unspecified, uncomplicated; Z79.899 Other long term (current) drug therapy
CPT/HCPCS: 36415; 71045; 80048; 85025; 94644; 96374; 96375; 99284; J2930; J3475

== ENCOUNTER 2021-07-17 07:33 | Emergency (ER) | payer SELFPAY ==
[2021-07-17 07:54] VITALS: BP 106/64
[2021-07-17] MEDS ORDERED: KETOROLAC 30 MG/1 ML INJ IM ONE (08:34)
[2021-07-17] MEDS ORDERED: dexAMETHasone 20 MG/5 ML VIAL IM ONE (08:35)
--- NOTE | 2021-07-17 08:55 | Emergency Department Report ---
ED Back Pain/Injury HPI - General Chief Complaint: Back Pain/Injury Stated Complaint: SPRAIN BACK Time Seen by Provider: 07/17/21 08:33 Source: patient Limitations: No Limitations - History of Present Illness Initial Comments: 31-year-old -[place] female presents to the emergency room for lower back pain that started yesterday when she was dealing with her dog. She states that when she bent down her back started to lock on her. Patient denies any falls no direct contact or injury no MVA no urinary symptoms reports she has a past medical history of asthma uses albuterol daily does not have a primary care provider. MD Complaint: back injury -: Last night Similar Symptoms Previously: No Place: home Severity scale (0 -10): 9 Quality: sharp, stabbing - Related Data Previous Rx's Medication Instructions Recorded Last Taken Type Albuterol Mdi (or & Nicu Only) 2 puff IH QID PRN #1 inhalation 04/29/17 Unknown Rx [Proair] Fluticasone [Flonase] 1 spray NS QDAY #1 bottle 04/29/17 Unknown Rx methylPREDNISolone [Medrol] 4 mg PO DAILY #1 tab.ds.pk 04/29/17 Unknown Rx Albuterol Mdi (or & Nicu Only) 2 puff IH QID PRN #1 inhalation 05/11/17 Unknown Rx [Proair] Prednisone [predniSONE 10 mg 10 mg PO .TAPER #1 tab.ds.pk 05/11/17 Unknown Rx (6-Day Pack, 21 Tabs)] Albuterol Sulfate [Proventil Hfa] 2 puff IH Q4HR PRN #1 hfa.aer.ad 12/10/18 Unknown Rx Benzonatate [Tessalon Perles] 100 mg PO Q8HR PRN #20 capsule 12/10/18 Unknown Rx predniSONE [Deltasone] 50 mg PO QDAY #5 tab 12/10/18 Unknown Rx Albuterol Mdi (or & Nicu Only) 2 puff IH Q4HR PRN #1 inhalation 04/06/20 Unknown Rx [ProAir HFA Inhaler] Ketorolac [Toradol] 10 mg PO Q6H PRN #20 07/17/21 Unknown Rx methOCARBAMOL [Robaxin TAB] 500 mg PO Q6H PRN #20 07/17/21 Unknown Rx predniSONE [Deltasone] 20 mg PO DAILY #15 tablet 07/17/21 Unknown Rx Allergies Allergy/AdvReac Type Severity Reaction Status Date / Time No Known Allergies Allergy Verified 04/29/17 12:22 ED Review of Systems ROS: Stated complaint: SPRAIN BACK Other details as noted in HPI Comment: All other systems reviewed and negative ED Past Medical Hx - Past Medical History Hx Diabetes: Yes (Prediabetic?) Hx Asthma: Yes - Surgical History Hx Appendectomy: Yes - Social History Smoking Status: Current Every Day Smoker Substance Use Type: None - Medications Home Medications: Home Medications Medication Instructions Recorded Confirmed Last Taken Type Albuterol Mdi (or & Nicu Only) 2 puff IH QID PRN #1 inhalation 04/29/17 Unknown Rx [Proair] Fluticasone [Flonase] 1 spray NS QDAY #1 bottle 04/29/17 Unknown Rx methylPREDNISolone [Medrol] 4 mg PO DAILY #1 tab.ds.pk 04/29/17 Unknown Rx Albuterol Mdi (or & Nicu Only) 2 puff IH QID PRN #1 inhalation 05/11/17 Unknown Rx [Proair] Prednisone [predniSONE 10 mg 10 mg PO .TAPER #1 tab.ds.pk 05/11/17 Unknown Rx (6-Day Pack, 21 Tabs)] Albuterol Sulfate [Proventil Hfa] 2 puff IH Q4HR PRN #1 hfa.aer.ad 12/10/18 Unknown Rx Benzonatate [Tessalon Perles] 100 mg PO Q8HR PRN #20 capsule 12/10/18 Unknown Rx predniSONE [Deltasone] 50 mg PO QDAY #5 tab 12/10/18 Unknown Rx Albuterol Mdi (or & Nicu Only) 2 puff IH Q4HR PRN #1 inhalation 04/06/20 Unknown Rx [ProAir HFA Inhaler] Ketorolac [Toradol] 10 mg PO Q6H PRN #20 07/17/21 Unknown Rx methOCARBAMOL [Robaxin TAB] 500 mg PO Q6H PRN #20 07/17/21 Unknown Rx predniSONE [Deltasone] 20 mg PO DAILY #15 tablet 07/17/21 Unknown Rx ED Physical Exam - General Limitations: No Limitations ED Course Vital Signs 07/17/21 07:53 Temperature 98.3 F Pulse Rate 83 Respiratory 16 Rate Blood Pressure 106/64 [Right] O2 Sat by Pulse 99 Oximetry ED Medical Decision Making - Medical Decision Making 31-year-old -[place] female presents to the emergency room for lower back pain that started yesterday when she was dealing with her dog. She states that when she bent down her back started to lock on her. Patient denies any falls no direct contact or injury no MVA no urinary symptoms reports she has a past medical history of asthma uses albuterol daily does not have a primary care provider. Patient was given a Toradol injection prednisone injection. Patient is being discharged on muscle relaxant Toradol and a prednisone pack. Patient is very very belligerent cussing screaming stating that she is going to call a corporate statistical financial analyst that she wants to see by somebody else. I instructed patient that she has been treated appropriately for her exam and history. She can follow-up with a primary care provider. Critical care attestation.: If time is entered above; I have spent that time in minutes in the direct care of this critically ill patient, excluding procedure time. ED Disposition Clinical Impression: Back pain Disposition: 01 HOME / SELF CARE / HOMELESS Is pt being admited?: No Does the pt Need Aspirin: No Condition: Stable Instructions: Acute Back Pain, Adult Additional Instructions: Is follow-up with your primary care provider. Take medications as prescribed. Prescriptions: predniSONE [Deltasone] 20 mg PO DAILY #15 tablet methOCARBAMOL [Robaxin TAB] 500 mg PO Q6H PRN #20 PRN Reason: Muscle Spasm Ketorolac [Toradol] 10 mg PO Q6H PRN #20 PRN Reason: Pain Referrals: PRIMARY MD ALISON [Primary Care Provider] - 3-5 Days DALLIN BERNARD II, MD [Staff Physician] - 3-5 Days Forms: Work/School Release Form(ED) Time of Disposition: 09:30
== END 2021-07-17 09:58 | disposition home or self-care (01) ==
LOC: ED 07:33
DX: M54.50 Low back pain, unspecified (principal); J45.909 Unspecified asthma, uncomplicated; F17.200 Nicotine dependence, unspecified, uncomplicated
CPT/HCPCS: 96372; 99282; J1100; J1885